=== PATIENT | male | born 1965 | race Caucasian/White ===

== ENCOUNTER 2019-12-11 15:15 | Emergency (ER) | payer OTHER ==
[~2019-12-11] VITALS: Ht 188 cm; Wt 84.1 kg
[2019-12-11] MEDS ORDERED: BOOSTRIX/ADACEL VACCINE (DIPHTH/PERTUSS/ACELL/TETANUS) 0.5ML SYR IM ONE (15:30)
[2019-12-11] MEDS ORDERED: DERMABOND TOPICAL SKIN ADHESIVE TOP ONE (15:30)
--- NOTE | 2019-12-11 15:52 | REPVR ---
PROCEDURE INFORMATION: Exam: CT Cervical Spine Without Contrast Exam date and time: 12/11/2019 3:33 PM Age: 54 years old Clinical indication: Injury or trauma; Fall; Initial encounter; Blunt trauma TECHNIQUE: Imaging protocol: Computed tomography images of the cervical spine without contrast. Radiation optimization: All CT scans at this facility use at least one of these dose optimization techniques: automated exposure control; mA and/or kV adjustment per patient size (includes targeted exams where dose is matched to clinical indication); or iterative reconstruction. COMPARISON: No relevant prior studies available. FINDINGS: Vertebrae: There is no fracture. Vertebral alignment is normal. Discs/Spinal canal/Neural foramina: There is mild spondylosis and disc space narrowing at C5-C6. There is facet hypertrophy with bilateral foraminal stenosis at this level. There is no central spinal stenosis in the cervical spine. Soft tissues: Unremarkable. Lungs: Lung apices are normal. IMPRESSION: No fracture of the cervical spine. Electronically signed by: Gustabo Masters On 12/11/2019 15:52:05 PM
--- NOTE | 2019-12-11 15:55 | REPVR ---
PROCEDURE INFORMATION: Exam: CT Head Without Contrast Exam date and time: 12/11/2019 3:33 PM Age: 54 years old Clinical indication: Injury or trauma; Fall; Initial encounter; Blunt trauma (contusions or hematomas) TECHNIQUE: Imaging protocol: Computed tomography of the head without contrast. Radiation optimization: All CT scans at this facility use at least one of these dose optimization techniques: automated exposure control; mA and/or kV adjustment per patient size (includes targeted exams where dose is matched to clinical indication); or iterative reconstruction. COMPARISON: No relevant prior studies available. FINDINGS: Brain: There is no evidence of infarct, charles-white matter differentiation is preserved. There is no hemorrhage or extra-axial collection. There is no mass. Cerebral ventricles: There is no hydrocephalus. Bones/joints: Unremarkable. No acute fracture. Paranasal sinuses: There is mucosal thickening in the ethmoids. No air-fluid levels. Mastoid air cells: Visualized mastoid air cells are well aerated. Soft tissues: Unremarkable. IMPRESSION: No intracranial injury or lesion. Electronically signed by: Gustabo Masters On 12/11/2019 15:55:04 PM
[2019-12-11 18:53] VITALS: BP 145/95
== END 2019-12-11 18:56 | disposition home or self-care (01) ==
LOC: M ED 15:15
DX: S01.312A Laceration without foreign body of left ear, initial encounter (principal); S13.4XXA Sprain of ligaments of cervical spine, initial encounter; S70.12XA Contusion of left thigh, initial encounter; V85.5XXA Driver of special construction vehicle injured in nontraffic accident, initial encounter; Y92.9 Unspecified place or not applicable; Y93.9 Activity, unspecified; Y99.0 Civilian activity done for income or pay